=== PATIENT | male | born 1935 | race Caucasian/White ===

== ENCOUNTER 2020-08-03 11:20 | Inpatient (IN) | payer OTHER, MEDICAID ==
[~2020-08-03] VITALS: Ht 322.6 cm; Wt 69.9 kg
[2020-08-03 12:26] LABS: BASOPHILS % 1.2 % (0.0-2.0); EOSINOPHILS % 1.4 % (0.0-5.0); HEMATOCRIT. 43.7 % (42.0-52.0); HEMOGLOBIN. 14.5 g/dL (14.0-18.0); LYMPHOCYTES % 13.2 % (20.0-50.0); MEAN CORPUSCULAR HEMOGLOBIN 31.6 pg (28.0-32.0); MEAN CORPUSCULAR VOLUME 95.5 fL (80.0-94.0); MONOCYTES % 6.9 % (2.0-8.0); NEUTROPHILS % 77.3 % (40.0-76.0); RED BLOOD CELL COUNT 4.58 mill/uL (4.7-6.1); RED CELL DISTRIBUTION WIDTH 13.6 % (11.6-14.6)
[2020-08-03 12:34] LABS: CHLORIDE 110 mEq/L (98-107)
[2020-08-03 12:38] LABS: ETHANOL BLOOD < 10 mg/dL
[2020-08-03 12:56] LABS: BG BASE EXCESS 1.9 mmol/L (-2.0-2.0); BG CARBOXYHEMOGLOBIN 0.7 % (0.5-1.5); BG DEOXYHEMOGLOBIN 5.1 % (0.0-5.0); BG HCO3 ACT 26.2 mmol/L (22.0-26.0); BG METHEMOGLOBIN 0.3 % (0.0-1.5); BG OXYGEN SATURATION 94.8 % (92.0-98.5); BG OXYHEMOGLOBIN 93.9 % (94.0-97.0); BG PCO2 39.9 mmHg (35.0-45.0); BG PH 7.435 (7.350-7.450); BG PO2 69.9 mmHg (75.0-100.0); BG SAMPLE SITE RIGHT RADIAL; BG TOTAL HEMOGLOBIN 14.5 g/dL (12.0-18.0); BG VENT MODE ROOM AIR
[2020-08-03 13:17] LABS: PLATELET 229 x1000/uL (130-400)
[2020-08-03 13:31] LABS: CLARITY URINE CLEAR (CLEAR); COLOR URINE YELLOW (YELLOW); KETONES URINE NEGATIVE (NEGATIVE); LEUKOCYTE ESTERASE URINE 2+ (NEGATIVE); NITRITE URINE POSITIVE (NEGATIVE); OCCULT BLOOD URINE NEGATIVE (NEGATIVE); PH URINE 6.5 (4.5-8.0); PROTEIN URINE NEGATIVE (NEGATIVE); SPECIFIC GRAVITY URINE 1.019 (1.005-1.030)
[2020-08-03 15:07] LABS: *AMPHETAMINES SCREEN URINE NEGATIVE (NEGATIVE); *BARBITURATES SCREEN URINE NEGATIVE (NEGATIVE); *BENZODIAZEPINES SCREEN URINE NEGATIVE (NEGATIVE); *COCAINE SCREEN URINE NEGATIVE (NEGATIVE); METHADONE URINE SCREEN NEGATIVE (NEGATIVE); OPIATES URINE SCREEN NEGATIVE (NEGATIVE); PHENCYCLIDINE URINE SCREEN NEGATIVE (NEGATIVE)
[2020-08-03 15:08] LABS: CANNABINOID URINE SCREEN NEGATIVE (NEGATIVE)
[2020-08-03] MEDS ORDERED: CEFTRIAXONE 1 G PREMIX 50 ML IV ONE (15:15)
[2020-08-03] MEDS ORDERED: MAGNESIUM/ALUMINUM HYDROXIDE/SIMETHICONE 30ML UDC PO PRN (19:15)
[2020-08-03] MEDS ORDERED: LORAZEPAM 2MG/ML CPJ IV PRN (19:15)
[2020-08-03] MEDS ORDERED: ONDANSETRON HCL 4MG/2ML INJ IV PRN (19:15)
[2020-08-03] MEDS ORDERED: LEVETIRACETAM 500 MG in SODIUM CHLORIDE 0.9% 100 ML IV SCH (19:15)
[2020-08-03] MEDS ORDERED: ACETAMINOPHEN 325MG TABLET PO PRN ×2 (19:15)
[2020-08-03] MEDS ORDERED: CLONIDINE 0.1MG TABLET PO PRN (19:15)
[2020-08-03] MEDS ORDERED: DEXTROSE 50% WATER 50ML SYRINGE IV PRN (19:15)
[2020-08-03] MEDS ORDERED: DIPHENHYDRAMINE 50MG/ML VIAL IV PRN (19:15)
[2020-08-03] MEDS ORDERED: ZOLPIDEM TARTRATE 5MG TABLET PO PRN (21:00)
[2020-08-03] MEDS ORDERED: LEVETIRACETAM 500MG PREMIX 100 ML IV SCH (22:00)
[2020-08-03] MEDS ORDERED: AMLODIPINE 5MG TABLET PO SCH (22:30)
[2020-08-03] MEDS: BLOOD SUGAR DIAGNOSTIC STRIP TEST SCH (22:59)
[2020-08-03] MEDS ORDERED: ENOXAPARIN 40MG/0.4ML SYR SUBCUT SCH (23:00)
[2020-08-03] MEDS: INSULIN LISPRO 100 UNITS/ML SUBCUT SCH (23:06)
[2020-08-03] MEDS: SODIUM CHLORIDE 0.9% INJ 3ML FLUSH IVF SCH (23:06)
[2020-08-04] MEDS ORDERED: ENALAPRIL 1.25 MG in DEXTROSE 5% WATER 49 ML IV PRN ×2
[2020-08-04] MEDS ORDERED: ACETAMINOPHEN 650MG SUPP PR PRN
[2020-08-04] MEDS ORDERED: SODIUM CHLORIDE 0.45% 1,000 ML IV SCH
[2020-08-04] MEDS: SODIUM CHLORIDE 0.9% INJ 3ML FLUSH IVF SCH ×2 (06:46→13:31)
[2020-08-04] MEDS: BLOOD SUGAR DIAGNOSTIC STRIP TEST SCH ×3 (06:49→17:17)
[2020-08-04] MEDS: INSULIN LISPRO 100 UNITS/ML SUBCUT SCH ×3 (07:07→17:17)
[2020-08-04] MEDS ORDERED: FAMOTIDINE 20MG/2ML VIAL IV SCH (09:00)
[2020-08-04 11:00] VITALS: BP 160/79
[2020-08-04] MEDS ORDERED: LEVETIRACETAM 500MG PREMIX 100 ML IV SCH (11:00)
[2020-08-04 12:00] VITALS: BP 184/79
[2020-08-04] MEDS ORDERED: POTA20TA82 MT (12:52)
[2020-08-04] MEDS ORDERED: FURO40TA5 MT (12:53)
[2020-08-04] MEDS ORDERED: PNEUMOCOCCAL 23-VAL P-SAC VAC 0.5 ML IM ONE (17:00)
[2020-08-04 18:00] VITALS: BP 164/90
[2020-08-04] MEDS ORDERED: ENOXAPARIN 40MG/0.4ML SYR SUBCUT SCH (21:00)
== END 2020-08-04 20:30 | disposition left against medical advice (07) | DRG 100 ==
LOC: ER 11:20 → MICUSO 15:22 → EDBEDREQ 15:24 → EDBEDREQTM 15:24 → 8WST 08-04 08:38
PROVIDERS: ADMIT Internal Medicine; ATTEND Internal Medicine
DX: R56.9 Unspecified convulsions (principal); G93.41 Metabolic encephalopathy; I69.954 Hemiplegia and hemiparesis following unspecified cerebrovascular disease affecting left non-dominant side; E44.0 Moderate protein-calorie malnutrition; Z68.1 Body mass index [BMI] 19.9 or less, adult; Z53.29 Procedure and treatment not carried out because of patient's decision for other reasons; F03.90 Unspecified dementia, unspecified severity, without behavioral disturbance, psychotic disturbance, mood disturbance, and anxiety; Z20.828 Contact with and (suspected) exposure to other viral communicable diseases; E11.65 Type 2 diabetes mellitus with hyperglycemia; Z66 Do not resuscitate
CPT/HCPCS: 36415; 36600; 80053; 80305; 80320; 81003; 82140; 82375; 82805; 82962; 83036; 85025; 90732; 93005; 93970; 96365; 99291; J0696; J1650; J1815; J1953; J3490; J7040; U0003; G0480